=== PATIENT | male | born 1935 | race Caucasian/White ===

== ENCOUNTER 2017-04-18 20:26 | Emergency (ER) | payer OTHER ==
[~2017-04-18 20:26] MED LIST: ALDACTONE25 MG PO; AMITRIPTYLINE H10 MG PO; ASPIRIN325 MG PO; ATORVASTATIN CA40 MG PO; FLONASE AL50 MCG/ACT; LEVOTHYROXINE100 MCG PO; LEVOTHYROXINE75 MCG PO; LISINOPRIL10 MG PO; LOPRESSOR50 MG PO; METFORMIN HCL500 MG PO; METOPROLOL SUCC25 MG PO; MIRTAZAPINE15 MG PO; MS CONTIN15 MG PO; MYLICON EQUIVAL80 MG PO; OMEPRAZOLE20 M1 PO; OXYCODONE HCL5 MG PO; REGLAN10 MG PO; SPIRONOLACTONE25 MG PO; TIZANIDINE HCL2 MG
--- NOTE | 2017-04-18 23:20 | DIAGNOSTIC IMAGING REPORT ---
PROCEDURE: CTA THORAX WITH CONTRAST INDICATION: CHEST PAIN TECHNIQUE: 92 ml of Isovue 370 was injected intravenously and axial images were obtained of the chest with 3D sagittal and coronal MIP reconstructions. COMPARISON: 07/12/2016, 05/26/2015 FINDINGS: Normal opacification of the pulmonary arterial tree without filling defect. The central pulmonary arteries are ectatic. Pulmonary artery outflow tract is 3.7 cm, the left pulmonary artery measures 2.9 cm and the right measures 2.8 cm. Thoracic aorta is normal caliber with mild atherosclerotic calcification. The great vessels demonstrate a normal branching pattern. The heart is diffusely enlarged with moderate coronary and mitral annular calcification. Surgical changes of CABG and median sternotomy are present. No pericardial effusion. No adenopathy or mediastinal masses. The esophagus is normal in caliber with a small hiatal hernia. The thyroid gland is normal. A few patchy nodular densities are present in the posterior and lateral left costophrenic angle, present on prior studies. The airway is patent and branches normally. No pleural effusions or pneumothorax. Osseous structures are intact. The images obtained of the upper abdomen demonstrate cholecystectomy, fatty replacement of the pancreas, right renal cysts. IMPRESSION: 1. No pulmonary embolus. 2. Chronic cardiomegaly post CABG, and pulmonary artery enlargement suggestive of pulmonary hypertension. 3. Clear lungs other than chronic patchy nodules at the left costophrenic angle. 4. Findings called to the emergency room.
--- NOTE | 2017-04-18 23:25 | DIAGNOSTIC IMAGING REPORT ---
PROCEDURE: XR CHEST 1 VIEW INDICATION: SHORTNESS OF BREATH TECHNIQUE: Single view chest. 2044 hours COMPARISON: 11/23/2015 FINDINGS: Mild cardiomegaly with median sternotomy and CABG changes. No central venous congestion. Slight prominence of central pulmonary arteries, stable. Normal aortic contour. Clear lungs. No effusion or pneumothorax. Intact osseous structures. IMPRESSION: 1. Mild cardiomegaly with postoperative changes, stable. 2. Mild pulmonary artery enlargement, stable. 3. No evidence of acute chest trauma.
--- NOTE | 2017-04-19 01:42 | ED CLINICAL REPORT ---
Clinical Report - Physicians/Mid Levels [facility] [address] [place] [address] 04/18/2017 20:28 Patient: MANUELA CORADO Time Seen: 20:32; initial patient contact. Arrived- By ambulance. Historian- patient. HISTORY OF PRESENT ILLNESS Location of injuries- (left lower chest). Chief Complaint: FALL. The injury occurred just prior to arrival. Occurred at home. ( light headed.). Fell. The patient complains of moderate pain. No blow to the head, neck pain, loss of consciousness or seizure. Not dazed. REVIEW OF SYSTEMS No numbness, difficulty breathing, weakness, laceration or fever. All systems otherwise negative, except as recorded above. PAST HISTORY See nurses notes. Tetanus immunization status is up-to-date. Medications: Oxycodone 15 mg PO Q 4-6 hrs PRN pain. Mirtazapine 30 mg PO QHS for sleep and appetite. Metoprolol 50 mg PO BID. Omeprazole 40 mg PO BID. Nortriptyline 10 mg 1-2 capsules PO Q evening. Atorvastatin 40 mg PO QHS. Metformin ER 500 mg PO QD. Allergies: No Known Drug Allergy. ADDITIONAL NOTES The nursing notes have been reviewed. PHYSICAL EXAM Vital Signs: 04/18/2017 20:33 BP: 139/73. HR: 80. RR: 12. O2 saturation: 98%. Temp: 97.6 F. Pain level now: 7/10. Oxygen saturation normal. Appearance: Alert. Oriented X3. No acute distress. Head: Head non-tender. No swelling of head. No Calero's sign or raccoon eyes. (mid-face stable. no crepitus. no deformity. no overlying skin changes). Eyes: Pupils equal, round and reactive to light. Pupillary exam: Right pupil 3mm, round and reactive to light directly and consensually and with accommodation. Left pupil: 3mm, round and reactive to light directly and consensually and with accommodation. EOM intact. ENT: No dental injury. No hemotympanum. Pharynx normal. No malocclusion. Neck: No decreased ROM or muscle spasm in the neck. No pain with movement of head/neck. Painless ROM. Non-tender. No vertebral tenderness. CVS: Heart sounds normal. Pulses normal. Respiratory: Breath sounds normal. Chest nontender. No rales, wheezes, rhonchi or crepitus. Abdomen: No visible injury. Soft and nontender. Bowel sounds normal. No mass. Back: No tenderness. ROM normal. Skin: Skin intact. Skin warm and dry. Normal skin color. Normal skin turgor. Extremities: Normal inspection. Pelvis stable. Extremities atraumatic. No lower extremity edema. Neuro: Maurisio Coma Scale: 15- eyes open spontaneously (4); best verbal response- oriented x 3 (5); best motor response- obeys commands (6). Oriented X 3. No motor deficit. No sensory deficit. LABS, X-RAYS, AND EKG EKG: Atrial flutter (78). RBBB. Normal ST and T waves, QT and QTc. The study has been interpreted contemporaneously. The study has been independently viewed by me. The EKG appears to be a good tracing. Chest X-ray: (PROCEDURE: XR CHEST 1 VIEW INDICATION: SHORTNESS OF BREATH TECHNIQUE: Single view chest. 2044 hours COMPARISON: 11/23/2015 FINDINGS: Mild cardiomegaly with median sternotomy and CABG changes. No central venous congestion. Slight prominence of central pulmonary arteries, stable. Normal aortic contour. Clear lungs. No effusion or pneumothorax. Intact osseous structures. IMPRESSION: 1. Mild cardiomegaly with postoperative changes, stable. 2. Mild pulmonary artery enlargement, stable.). The X-rays were independently viewed by me and interpreted by the radiologist. The X-rays were discussed with the radiologist (via pacs). Chest CT: (PROCEDURE: CTA THORAX WITH CONTRAST INDICATION: CHEST PAIN TECHNIQUE: 92 ml of Isovue 370 was injected intravenously and axial images were obtained of the chest with 3D sagittal and coronal MIP reconstructions. COMPARISON: 07/12/2016, 05/26/2015 FINDINGS: Normal opacification of the pulmonary arterial tree without filling defect. The central pulmonary arteries are ectatic. Pulmonary artery outflow tract is 3.7 cm, the left pulmonary artery measures 2.9 cm and the right measures 2.8 cm. Thoracic aorta is normal caliber with mild atherosclerotic calcification. The great vessels demonstrate a normal branching pattern. The heart is diffusely enlarged with moderate coronary and mitral annular calcification. Surgical changes of CABG and median sternotomy are present. No pericardial effusion. No adenopathy or mediastinal masses. The esophagus is normal in caliber with a small hiatal hernia. The thyroid gland is normal. A few patchy nodular densities are present in the posterior and lateral left costophrenic angle, present on prior studies. The airway is patent and branches normally. No pleural effusions or pneumothorax. Osseous structures are intact. The images obtained of the upper abdomen demonstrate cholecystectomy, fatty replacement of the pancreas, right renal cysts. IMPRESSION: 1. No pulmonary embolus. 2. Chronic cardiomegaly post CABG, and pulmonary artery enlargement suggestive of pulmonary hypertension. 3. Clear lungs other than chronic patchy nodules at the left costophrenic angle.). The study was independently viewed by me and interpreted by the radiologist. The study was discussed with the radiologist (via pacs and phone). Laboratory Tests: UA-Culture if indicated: (CAROLINE: 04/18/2017 21:25) ( [facility] 04[facility]18[facility] 21[facility]43[facility] Final results Test Result Flag Units (Reference) URINE COLOR YELLOW URINE APPEARANCE CLEAR URINE GLUCOSE NEGATIVE (NEGATIVE) URINE BILIRUBIN NEGATIVE (NEGATIVE) URINE KETONE TRACE (NEGATIVE) URINE SPECIFIC GRAVITY 1.020 (1.010-1.030) URINE PH 6.0 (5.0-8.0) URINE PROTEIN NEGATIVE (NEGATIVE) URINE UROBILINOGEN 1.0 EU/dL (0.2-1.0) URINE NITRITE NEGATIVE (NEGATIVE) URINE BLOOD NEGATIVE (NEGATIVE) URINE LEUK ESTERASE NEGATIVE (NEGATIVE) URINE RBC RARE rbc/hpf (0-1) URINE WBC RARE wbc/hpf (0-1) URINE EPITHELIAL CELLS RARE EPI/hpf (0-5) URINE BACTERIA NONE SEEN (NONE SEEN) URINE COMMENT CULT NOT INDICATED 3-5 Hyaline Casts/l.p.f.URINE CULTURES ARE SET-UP BASED ON THE FOLLOWING CRITERIA:POSITIVE NITRITEPOSITIVE LEUKOCYTE ESTERASEGREATER THAN 10 WHITE BLOOD CELLSMODERATE (2+) OR GREATER BACTERIA CBC w Diff: (CAROLINE: 04/18/2017 20:35) ( [facility] 04/18/[facility] 21:00) Final results Test Result Flag Units (Reference) WHITE BLOOD COUNT 10.4 K/uL (4.5-11.5) RED BLOOD COUNT 4.33 L M/uL (4.50-5.90) HEMOGLOBIN 13.9 gm/dL (13.5-17.5) HEMATOCRIT 42.0 % (41.0-53.0) MEAN CELL VOLUME 97 fL (80-100) MEAN CORPUSCULAR HGB 32 pg (26-34) MEAN CORPUSCULAR HGB CONC 33 g/dL (31-37) RED CELL DISTRIBUTION WIDTH 13.6 % (11.6-14.8) PLATELET COUNT 208 K/uL (150-400) NEUTROPHIL % 70.5 % (50-75) LYMPH % 22.2 L % (25-40) MONO % 5.9 % (3-14) EOSINOPHIL % 1.1 % (0-4) BASOPHIL % 0.3 % (0-2) [id number]: (CAROLINE: 04/18/2017 20:35) ( [facility] 04/18/2017 21:12) Final results Test Result Flag Units (Reference) D-DIMER QUANTITATIVE 0.76 H ug/mLFEU (0.27-0.52) The primary value of this quantitative assay relates toits negative predictive value (i.e. exclusion) of pulmonaryembolism/deep vein thrombosis/DIC.Elevated levels of d-dimer may also occur with:, age, cancer, inflammation, liver disease,post-op, infection, hematoma, coronary disease, peripheralarteriopathy, bleeding disorders and thrombolytic treatment.Results should be correlated with other clinical andradiological data.Testing Methodology: Latex Immunoassay [id number]: (CAROLINE: 04/18/2017 23:46) ( [facility] 04/19/2017 00:13) Final results Test Result Flag Units (Reference) POTASSIUM 5.1 # mmol/L (3.5-5.1) Troponin-I: (CAROLINE: 04/18/2017 23:30) ( [facility] 04/18/2017 23:53) Final results Test Result Flag Units (Reference) TROPONIN I <0.05 L ng/mL (0.00-1.5) TROPONIN REFERENCE RANGE:<0.1 NEGATIVE0.1-1.5 INDETERMINANT>1.5 POSITIVE BNP: (CAROLINE: 04/18/2017 20:35) ( [facility] 04/18/2017 21:17) Final results Test Result Flag Units (Reference) B-TYPE NATRIURETIC PEPTIDE 150 H pg/ml (5-100) CHEM 13 PANEL: (CAROLINE: 04/18/2017 20:35) ( [facility] 04/18/2017 21:21) Final results Test Result Flag Units (Reference) GLUCOSE 174 H mg/dL (70-110) BUN 26 H mg/dL (7-18) CREATININE 1.6 H mg/dL (0.6-1.3) Estimated GFR 44.09 mL/min Estimated GFR- 53.44 mL/min Note: Persistent reduction over 3 months in eGFR<60 mL/min/1.73 m2 defines CKD. Patients with eGFR values>=60 mL/min/1.73 m2 may also have CKD if evidence ofpersistent proteinuria. Additional information may be foundat www.kidney.org. SODIUM 136 mmol/L (136-145) POTASSIUM 6.0 H mmol/L (3.5-5.1) CHLORIDE 98 mmol/L (98-107) CARBON DIOXIDE 30 mmol/L (21-32) CALCIUM 9.2 mg/dL (8.5-10.1) TOTAL PROTEIN 8.6 H g/dL (6.4-8.2) ALBUMIN 4.5 g/dL (3.3-5.0) BILIRUBIN, TOTAL 0.6 mg/dL (0.0-1.0) ALKALINE PHOSPHATASE 166 H U/L (46-116) AST (SGOT) 26 U/L (15-37) ALT (SGPT) 32 U/L (12-78) CPK 112 U/L (24-260) MAGNESIUM 1.6 L mg/dL (1.8-2.4) TROPONIN I <0.05 L ng/mL (0.00-1.5) TROPONIN REFERENCE RANGE:<0.1 NEGATIVE0.1-1.5 INDETERMINANT>1.5 POSITIVE . PROGRESS AND PROCEDURES Course of Care: the patient is a pleasant 82-year-old male presenting for evaluation of ground-level fall with reported left lower chest discomfort. Patient had a episode of dizziness prior to the onset of the fall. The concern for cardiac etiology for the patient's fall. Patient be evaluated with the Rosanky syncope rule. Patient is otherwise nontoxic and in no acute distress. Lung sounds are clear bilaterally. No concern for pneumothorax or tension pneumothorax at this time. The patient's workup was unremarkable for the findings above. Troponin is noted to be negative. Patient's d-dimer is elevated however. We'll be evaluating the patient with a CT scan of the patient's chest under the pulmonary embolism protocol. The rest of the patient's workup is noted to be unremarkable. Patient is currently awaiting his second troponin. If the patient's second troponin is noted to be negative, do not feel patient requires further workup here in the emergency department or admission to the hospital. The patient's CT scan of the chest does not show any signs of acute abnormalities. No pulmonary embolism noted. Because of the patient's negative workup here in the emergency department, feel the patient is a stable outpatient candidate. patient also noted with a pacemaker. Because of this, if it is due to a cardiac etiology, the pacemaker should help with the patient's symptoms. Recommended patient follow up with his doctor in regards to the symptoms here today. Return precautions are provided in addition to home care instructions, follow-up, and discussion of his workup here in the emergency department and diagnosis. All questions have been answered. The patient expressed understanding of these instructions and was agreeable to them. Disposition: Discharged. Condition: good. CLINICAL IMPRESSION 04/19/2017 01:21 BP: 110/53. HR: 66. O2 saturation: 98%. 04/19/2017 00:49 BP: 104/48. HR: 68. RR: 17. O2 saturation: 100%. Temp: 98 F. Pain level now: 9/10. Syncope of unknown cause .12 lead EKG performed. Blood pressure normal. Oxygen saturation normal. Atrial flutter with controlled rate. Moderate dehydration Hyperkalemia (acute resolved). Mild hypomagnesemia (acute). Single contusion. (anterior chest). INSTRUCTIONS Warnings: GENERAL WARNINGS: Return or contact your physician immediately if your condition worsens or changes unexpectedly, if not improving as expected, or if other problems arise. SPECIFICALLY, return if you develop weakness, numbness, tingling, pain or incontinence. OTC Medications: Aspirin 325 mg (available over the counter): take 1 orally every 24 hours. Dispense thirty (30). No refills. 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 Reason for referral: recheck today's concerns. Summary of care provided to patient via paper. Follow up with your doctor in three days. Reason for referral: recheck today's concerns. Summary of care provided to patient via paper. Screening today revealed the patient's blood pressure to be in the normal range. The patient should follow up with a primary care provider for blood pressure management. (Electronically signed by Rubens Rios Dr. 04/21/2017 8:05)
--- NOTE | 2017-04-19 01:42 | ED ORDER SUMMARY ---
..... Patient: MANUELA CORADO OrderSheet [facility] VisitID: [id number] [place] [address] 82y, M Registration Date/Time: 04/18/2017 ORDER SHEET Weight: 79.3 kg (stated) Allergies: No Known Drug Allergy GENERAL ORDERS: Chest 1V Urgent (20:33 04/18/2017 Bill Fierro) (Ack 20:38 CHagerty ER Pump Stitcher) (21:00 Elena) UA-Culture if indicated Urgent (20:34 04/18/2017 Bill Fierro) (Ack 20:38 CHagerty ER Pump Stitcher) (21:26 ANGELICAanderjovita R.N.) Cardiac Panel Stat (20:34 04/18/2017 Bill Fierro) (Ack 20:38 CHagerty ER Pump Stitcher) (21:20 ANGELICAanders R.N.) BNP Urgent (20:34 04/18/2017 Bill Fierro) (Ack 20:38 CHagerty ER Pump Stitcher) (21:20 ANGELICAanders R.N.) D-Dimer Urgent (20:34 04/18/2017 Bill Fierro) (Ack 20:38 CHagerty ER Pump Stitcher) (21:20 ANGELICAanders R.N.) EKG - ER Stat (20:34 04/18/2017 Bill Fierro) (Ack 20:38 CHagerty ER Pump Stitcher) (20:45 JQuivey R.N.) CTA Thorax w Cont (No) (gfr 45) Urgent (21:45 04/18/2017 Amy Fierro) (Ack 21:52 CHagerty ER Pump Stitcher) (22:20 CHagerty ER Pump Stitcher) Troponin-I (redraw now) Urgent (23:19 04/18/2017 Amy Fierro) (Ack 23:24 CHagerty ER Pump Stitcher) (23:32 MCook R.N.) Potassium (repeat) Urgent (23:43 04/18/2017 Amy Fierro) (23:45 CHagerty ER Pump Stitcher) MEDICATION ORDERS: IV FLUIDS: IV NS : initial bolus none -, then 1000 mL/hr for X1 (NOW) (Runn 500 mL in initially plz) (20:33 04/18/2017 Bill Fierro) (20:45 Augie R.NBrigid) Morphine IV 2 mg (may repeat in 15 minutes for pain > 5/10 in severity) (21:56 04/18/2017 Amy Fierro) (22:02 Leon Chino.NBrigid) Magnesium Sulfate IV 2 gm/50mL (HIGH ALERT MEDICATION, NOW, over 1 hour) (23:44 04/18/2017 Amy Fierro) (Ack 23:55 Kaye R.N.) (0:09 Kaye R.N.) Morphine IV 2 mg (HIGH ALERT MEDICATION, NOW) (00:58 04/19/2017 Kaye R.N. verbal order read back to Amy Fierro) (Ack 1:00 Shiranandez R.N.) (1:06 CHernandez R.N.) ORDER SHEET NOTES: Reason for Study: Pain [Electronically signed by Stiven Carter R.N. (02:04/19/2017)] [Electronically signed by Rubens Rios Dr. (08:05 04/21/2017)] [Electronically locked/signed by Stiven Carter R.N. (02:04/19/2017)]
--- NOTE | 2017-04-19 01:42 | ED NURSING NOTES ---
Clinical Report - Nurses [facility] [address] [place] [address] 04/18/2017 20:28 Patient: MANUELA CORADO TRIAGE Triage time 20:33 Apr 18 2017. Acuity: LEVEL 3. Chief Complaint: DIZZINESS and NEAR-SYNCOPE and (Pt feel while working outside, reported feeling dizzy. On impact, he hit a piece fo wood on his L upper abdomen, he also hit his face.). Alert. No acute distress. --20:38 Rusty Underwood R.N. 20:33 04/18/17. BP: 139/73. HR: 80. RR: 12. O2 saturation: 98% on room air. Temp: 97.6 F. Pain level now: 06/02. --20:38 Rusty Underwood R.N. Weight: 79.3 kg stated. Height/Length: 71 inches Per Patient. BMI: 24.4. --20:32 Rusty Underwood R.N. Medications Metformin ER 500 mg PO QD. --23:22 Rusty Underwood R.N. Atorvastatin 40 mg PO QHS. --23:22 Rusty Underwood R.N. Nortriptyline 10 mg 1-2 capsules PO Q evening. --23:23 Rusty Underwood R.N. Omeprazole 40 mg PO BID. --23:23 Rusty Underwood R.N. Metoprolol 50 mg PO BID. --23:23 Rusty Underwood R.N. Mirtazapine 30 mg PO QHS for sleep and appetite. --23:24 Rusty Underwood R.N. Oxycodone 15 mg PO Q 4-6 hrs PRN pain. --23:25 Rusty Underwood R.N. Allergies No Known Drug Allergy. --20:34 Rusty Underwood R.N. History Arrived by EMS. Historian: patient. This started today. 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 PAST MEDICAL HX: Immunizations: up-to-date. SOCIAL HX: Light tobacco smoker- less than 1/2 a pack per day. No alcohol use or drug use. No infectious disease exposure. ABUSE ASSESSMENT: No report of abuse. NUTRITIONAL RISK ASSESSMENT: The nutritional risk assessment revealed no deficiencies. FUNCTIONAL ASSESSMENT: Functional assessment: no impairments noted. LEARNING NEEDS ASSESSMENT: The learning needs assessment revealed no barriers. FALL RISK ASSESSMENT: Fall risk assessment completed. Risk factors identified include dizziness and patient age greater than 65 years, history of fall and impairment of mobility; Pt uses a walker and a cane at home PRN. SKIN INTEGRITY ASSESSMENT: Skin integrity risk assessment completed. No skin integrity risk identified. --20:38 Rusty Underwood R.N. PROBLEMS: Gastroesophageal Reflux. Chest Pain. Vomiting. Fall. Contusion. Tetanus Status. Choking Episode. Coronary Artery Disease. Insomnia. Dyspnea. Dehydration. Abdominal Pain. GI Bleeding. Immunizations. Weakness. Cardiomyopathy. Diabetes Mellitus. Heart Disease. Hypertension. --20:35 Rusty Underwood R.N. ADDITIONAL SURGERIES: Appendectomy. Back Surgery. Cholecystectomy. Coronary Artery Bypass Graft. --20:35 uRsty Underwood R.N. Assessment The patient states feels better. --20:38 Rusty Underwood R.N. Interventions ID band on patient. To treatment room. --20:38 Rusty Underwood R.N. PHYSICAL ASSESSMENT To room via stretcher. GENERAL / NEURO / PSYCH: Oriented X 4. Appears in pain. Alert. Speech within normal limits. HEENT: Pupils equal, round and reactive to light. RESPIRATORY: Respirations not labored. CVS: Cardiac rhythm: normal sinus rhythm; multifocal PVCs. GI / : Abdomen soft. Abdominal tenderness in the left upper quadrant. SKIN: Skin is warm and dry. --20:39 Rusty Underwood R.N. CVS: Cardiac rhythm: atrial flutter. --22:34 Rusty Underwodo R.N. GENERAL / NEURO / PSYCH: Oriented X 4. Appears in no acute distress. Alert. Speech within normal limits. Does not appear in pain or distress or anxious. RESPIRATORY: Decreased breath sounds (due to side pain in deep inspiration--breath/lung sounds clear, however). Respirations not labored. CVS: Cardiac rhythm: atrial flutter. Capillary refill less than 2 seconds. GI / : Abdomen soft. Normal bowel sounds. SKIN: Skin is warm and dry. --01:34 Stiven Carter R.N. NURSING PROGRESS NOTES The plan of care for this patient has been created. Monitoring of patient in place. Patient gowned. Head of bed elevated. Reassurance given. Two patient identifiers checked. Call light placed in reach. Side rails up x 2. Bed placed in lowest position. Patient ready for evaluation- ED physician notified. ( MD in to assess Pt briefly, IVIP, monitoring in place.). --20:39 Rusty Underwood R.N. <<STRICKEN ENTRY-- 20:44 04/18/17. BP: 119/78. HR: 101. RR: 22. O2 saturation: 99% on Venti mask. Temp: 98.2 F. FLACC pain scale: 4/10. --20:44 Rusty Underwood R.N. --END STRIKE>> Charted on wrong patient. --20:45 Rusty Underwood R.N. 20:35 04/18/2017 Site #1 started via IV in the right antecubital space with an 20g angiocath, with aseptic technique and good blood return; one attempt. Blood drawn: rainbow set. Labeled in the presence of the patient and sent to the lab. Saline lock flushed with 10 mL saline (By Randall PURI). --20:45 Sriram Zarate R.N. 20:45 04/18/2017 Started bag #1 1000 mL IV Fluids IV NS (Saline); at 1000 mL/hr over 30 minute(s) via site #1 --20:45 Sriram Zarate R.N. 20:46. Portable chest x-ray performed. --20:46 Sriram Zarate R.N. 20:46. EKG time: (2047). EKG was performed by a tech and shown to the ED physician. --20:46 Sriram Zarate R.N. 21:26 04/18/2017 IV Fluids IV NS Discontinued: bag #1 discontinued. Total amount infused: 500 mL. IV patency established. IV site checked: no pain, redness, or swelling. IV flushed thoroughly. --21:26 Alma Lemus R.N. 21:26 04/18/17. BP: 140/66 (regular adult cuff) taken on the left arm. HR: 76. RR: 18. O2 saturation: 96% on room air. Pain level now: 08/03. Additional comments: left chest. --21:27 Alma Lemus R.N. 21:27 04/18/17. ( Patient says his chest is hurting left side bottom of rib, patient given blanket for comfort measures, patients daughter stepped out of the room for a short time.). --21:27 Alma Lemus R.N. 22:02 04/18/2017 Morphine IVP 2 mg given over 2 minute(s) via site #1. Allergies verified, confirmed 5 rights and sedative warning given to the patient. IV patency established. IV site checked: no pain, redness, or swelling. IV flushed thoroughly pre- and post-medication administration. IVP given by RN. --22:02 Rusty Underwood R.N. 21:59 04/18/17. BP: 102/54. HR: 72. RR: 13. O2 saturation: 100% on room air. Pain level now: 08/03. --22:02 Rusty Underwood R.N. ( Pt still c/o pain, administered scheduled analgesic as ordered, radiology at bedside preparing to take Pt to CT.). --22:03 Rusty Underwood R.N. Patient transported to CT by stretcher with tech. (22:Apr 18 2017). --22:09 Rusty Underwood R.N. 22:28 04/18/2017 Morphine IVP 2 mg given over 2 minute(s) via site #1. Allergies verified, confirmed 5 rights and sedative warning given to the patient. IV patency established. IV site checked: no pain, redness, or swelling. IV flushed thoroughly pre- and post-medication administration. IVP given by RN. --22:28 Rusty Underwood R.N. 22:28 04/18/17. BP: 149/66. HR: 70. RR: 20. O2 saturation: 100% on room air. --22:29 Rusty Underwood R.N. ( Pt returned from CT a few moments ago. Still reporting pain. Repeat dose of morphine given as ordered, VSS, Pt denies needs.). --22:29 Rusty Underwood R.N. Patient ID band checked for patient name and birthdate: patient confirmed. Blood samples drawn from the right antecubital space peripheral IV site by nurse per protocol ; labeled in presence of the patient and sent to lab: green top. Initial blood discarded. Line flushed with 10 mL normal saline post blood draw. Care transferred and report given (to JOHN Sandoval at end of shift.). --23:32 Rusty Underwood R.N. 23:32 04/18/2017 Morphine IVP Response: no adverse reaction pain is improving. --23:32 Rusty Underwood R.N. 00:09 04/19/2017 Magnesium Sulfate (Magnesium Sulfate in D5W) IVP 2 gm given over 2 hour(s) via site #1. Allergies verified and confirmed 5 rights. IV patency established. IV site checked: no pain, redness, or swelling. IV flushed thoroughly pre- and post-medication administration. IVP given by RN. --00:09 Gerhard Santa R.N. 00:49 04/19/17. BP: 104/48. HR: 68. RR: 17. O2 saturation: 100%. Temp: 98 F. Pain level now: 08/03. --00:50 Gerhard Santa R.N. ( Complaining of pain on his left side to the back). GENERAL / NEURO / PSYCH: Patient is calm and cooperative. Alert. Oriented X 4. RESPIRATORY: No respiratory distress. SKIN: Skin is warm and dry. --00:50 Gerhard Santa R.N. 01:05 04/19/2017 Morphine IVP 2 mg given over 3 minute(s) via site #1. Allergies verified, confirmed 5 rights and sedative warning given to the patient and patient's family. IV patency established. IV site checked: no pain, redness, or swelling. IV flushed thoroughly pre- and post-medication administration. IVP given by RN. --01:06 Gerhard Santa R.N. ( Report received from Gerhard Galindo RN). --01:17 Stiven Carter R.N. ( Patient resting in bed and sleeping on arrival to room, awoke to verbal greeting). --01:34 Stiven Carter R.N. 02:04 04/19/2017 Site #1 removed upon discharge. Manual pressure and bandage applied. --02:04 Stiven Carter R.N. DISPOSITION / DISCHARGE 01:58 04/19/17. Condition at departure: improved. No learning barriers present. Discharge instructions provided and reviewed with the patient. Reviewed medication(s) side effects, precautions and dosing information (ASA). Patient verbalized understanding. Written instructions provided in Latvian. The patient was discharged by the physician. He was discharged home and accompanied by family. He left the Emergency Department ambulatory and via private vehicle. Family member driving. --01:58 Alma Lemus R.N. 01:54 04/19/17. BP: 110/53 (regular adult cuff) taken on the left arm. HR: 78. RR: 18. O2 saturation: 97% on room air. Temp: 97.8 F (oral). Pain level now: 08/03. --01:58 Alma Lemus R.N. 01:58 04/19/17. ( Patient will get the rest of his Mag Sulf and then be released). --01:58 Alma Lemus R.N. ( Patient a-flutter on surveillance monitor at time of discharge). --02:01 Stiven Carter R.N. Departure time: 02:15. --02:18 Stiven Carter R.N. <<STRICKEN ENTRY-- 02:18 04/19/17. HR: 85. RR: 15. --02:18 Stiven Carter R.N. --END STRIKE>> Change to Details. --02:19 Stiven Carter R.N. 02:15 04/19/17. HR: 85. RR: 15. --02:20 Stiven Carter R.N. The patient was discharged home and accompanied by family. He left the Emergency Department in a wheelchair and via private vehicle. Family member driving. --02:21 Stiven Carter R.N. Locked/Released at 04/19/2017 2:21 by Stiven Carter R.N.
--- NOTE | 2017-04-19 01:42 | ED ORDER SUMMARY ---
..... Patient: MANUELA CORADO OrderSheet [facility] VisitID: [id number] [place] [address] 82y, M Registration Date/Time: 04/18/2017 ORDER SHEET Weight: 79.3 kg (stated) Allergies: No Known Drug Allergy GENERAL ORDERS: Chest 1V Urgent (20:33 04/18/2017 Bill Fierro) (Ack 20:38 CHagerty ER Moisture Conditioner Operator) (21:00 Elena) UA-Culture if indicated Urgent (20:34 04/18/2017 Bill Fierro) (Ack 20:38 CHagerty ER Moisture Conditioner Operator) (21:26 ANGELICAanderjovita R.N.) Cardiac Panel Stat (20:34 04/18/2017 Bill Fierro) (Ack 20:38 CHagerty ER Moisture Conditioner Operator) (21:20 ANGELICAanders R.N.) BNP Urgent (20:34 04/18/2017 Bill Fierro) (Ack 20:38 CHagerty ER Moisture Conditioner Operator) (21:20 ANGELICAanders R.N.) D-Dimer Urgent (20:34 04/18/2017 Bill Fierro) (Ack 20:38 CHagerty ER Moisture Conditioner Operator) (21:20 ANGELICAanders R.N.) EKG - ER Stat (20:34 04/18/2017 Bill Fierro) (Ack 20:38 CHagerty ER Moisture Conditioner Operator) (20:45 JQuivey R.N.) CTA Thorax w Cont (No) (gfr 45) Urgent (21:45 04/18/2017 Amy Fierro) (Ack 21:52 CHagerty ER Moisture Conditioner Operator) (22:20 CHagerty ER Moisture Conditioner Operator) Troponin-I (redraw now) Urgent (23:19 04/18/2017 Amy Fierro) (Ack 23:24 CHagerty ER Moisture Conditioner Operator) (23:32 MCook R.N.) Potassium (repeat) Urgent (23:43 04/18/2017 Amy Fierro) (23:45 CHagerty ER Moisture Conditioner Operator) MEDICATION ORDERS: IV FLUIDS: IV NS : initial bolus none -, then 1000 mL/hr for X1 (NOW) (Runn 500 mL in initially plz) (20:33 04/18/2017 Bill Fierro) (20:45 Augie R.NBrigid) Morphine IV 2 mg (may repeat in 15 minutes for pain > 5/10 in severity) (21:56 04/18/2017 Amy Fierro) (22:02 Leon Chnio.NBrigid) Magnesium Sulfate IV 2 gm/50mL (HIGH ALERT MEDICATION, NOW, over 1 hour) (23:44 04/18/2017 Amy Fierro) (Ack 23:55 Kaye R.N.) (0:09 Kaye R.N.) Morphine IV 2 mg (HIGH ALERT MEDICATION, NOW) (00:58 04/19/2017 Kaye R.N. verbal order read back to Amy Fierro) (Ack 1:00 Shiranandez R.N.) (1:06 CHernandez R.N.) ORDER SHEET NOTES: Reason for Study: Pain [Electronically signed by Stiven Carter R.N. (02:04/19/2017)] [Electronically signed by Rubens Rios Dr. (08:05 04/21/2017)] [Electronically locked/signed by Stiven Carter R.N. (02:04/19/2017)]
--- NOTE | 2017-04-19 01:42 | ED CLINICAL REPORT ---
Clinical Report - Physicians/Mid Levels [facility] [address] [place] [address] 04/18/2017 20:28 Patient: MANUELA CORADO Time Seen: 20:32; initial patient contact. Arrived- By ambulance. Historian- patient. HISTORY OF PRESENT ILLNESS Location of injuries- (left lower chest). Chief Complaint: FALL. The injury occurred just prior to arrival. Occurred at home. ( light headed.). Fell. The patient complains of moderate pain. No blow to the head, neck pain, loss of consciousness or seizure. Not dazed. REVIEW OF SYSTEMS No numbness, difficulty breathing, weakness, laceration or fever. All systems otherwise negative, except as recorded above. PAST HISTORY See nurses notes. Tetanus immunization status is up-to-date. Medications: Oxycodone 15 mg PO Q 4-6 hrs PRN pain. Mirtazapine 30 mg PO QHS for sleep and appetite. Metoprolol 50 mg PO BID. Omeprazole 40 mg PO BID. Nortriptyline 10 mg 1-2 capsules PO Q evening. Atorvastatin 40 mg PO QHS. Metformin ER 500 mg PO QD. Allergies: No Known Drug Allergy. ADDITIONAL NOTES The nursing notes have been reviewed. PHYSICAL EXAM Vital Signs: 04/18/2017 20:33 BP: 139/73. HR: 80. RR: 12. O2 saturation: 98%. Temp: 97.6 F. Pain level now: 7/10. Oxygen saturation normal. Appearance: Alert. Oriented X3. No acute distress. Head: Head non-tender. No swelling of head. No Calero's sign or raccoon eyes. (mid-face stable. no crepitus. no deformity. no overlying skin changes). Eyes: Pupils equal, round and reactive to light. Pupillary exam: Right pupil 3mm, round and reactive to light directly and consensually and with accommodation. Left pupil: 3mm, round and reactive to light directly and consensually and with accommodation. EOM intact. ENT: No dental injury. No hemotympanum. Pharynx normal. No malocclusion. Neck: No decreased ROM or muscle spasm in the neck. No pain with movement of head/neck. Painless ROM. Non-tender. No vertebral tenderness. CVS: Heart sounds normal. Pulses normal. Respiratory: Breath sounds normal. Chest nontender. No rales, wheezes, rhonchi or crepitus. Abdomen: No visible injury. Soft and nontender. Bowel sounds normal. No mass. Back: No tenderness. ROM normal. Skin: Skin intact. Skin warm and dry. Normal skin color. Normal skin turgor. Extremities: Normal inspection. Pelvis stable. Extremities atraumatic. No lower extremity edema. Neuro: Maurisio Coma Scale: 15- eyes open spontaneously (4); best verbal response- oriented x 3 (5); best motor response- obeys commands (6). Oriented X 3. No motor deficit. No sensory deficit. LABS, X-RAYS, AND EKG EKG: Atrial flutter (78). RBBB. Normal ST and T waves, QT and QTc. The study has been interpreted contemporaneously. The study has been independently viewed by me. The EKG appears to be a good tracing. Chest X-ray: (PROCEDURE: XR CHEST 1 VIEW INDICATION: SHORTNESS OF BREATH TECHNIQUE: Single view chest. 2044 hours COMPARISON: 11/23/2015 FINDINGS: Mild cardiomegaly with median sternotomy and CABG changes. No central venous congestion. Slight prominence of central pulmonary arteries, stable. Normal aortic contour. Clear lungs. No effusion or pneumothorax. Intact osseous structures. IMPRESSION: 1. Mild cardiomegaly with postoperative changes, stable. 2. Mild pulmonary artery enlargement, stable.). The X-rays were independently viewed by me and interpreted by the radiologist. The X-rays were discussed with the radiologist (via pacs). Chest CT: (PROCEDURE: CTA THORAX WITH CONTRAST INDICATION: CHEST PAIN TECHNIQUE: 92 ml of Isovue 370 was injected intravenously and axial images were obtained of the chest with 3D sagittal and coronal MIP reconstructions. COMPARISON: 07/12/2016, 05/26/2015 FINDINGS: Normal opacification of the pulmonary arterial tree without filling defect. The central pulmonary arteries are ectatic. Pulmonary artery outflow tract is 3.7 cm, the left pulmonary artery measures 2.9 cm and the right measures 2.8 cm. Thoracic aorta is normal caliber with mild atherosclerotic calcification. The great vessels demonstrate a normal branching pattern. The heart is diffusely enlarged with moderate coronary and mitral annular calcification. Surgical changes of CABG and median sternotomy are present. No pericardial effusion. No adenopathy or mediastinal masses. The esophagus is normal in caliber with a small hiatal hernia. The thyroid gland is normal. A few patchy nodular densities are present in the posterior and lateral left costophrenic angle, present on prior studies. The airway is patent and branches normally. No pleural effusions or pneumothorax. Osseous structures are intact. The images obtained of the upper abdomen demonstrate cholecystectomy, fatty replacement of the pancreas, right renal cysts. IMPRESSION: 1. No pulmonary embolus. 2. Chronic cardiomegaly post CABG, and pulmonary artery enlargement suggestive of pulmonary hypertension. 3. Clear lungs other than chronic patchy nodules at the left costophrenic angle.). The study was independently viewed by me and interpreted by the radiologist. The study was discussed with the radiologist (via pacs and phone). Laboratory Tests: UA-Culture if indicated: (CAROLINE: 04/18/2017 21:25) ( [facility] [place] 04/18/[place] 21:43) Final results Test Result Flag Units (Reference) URINE COLOR YELLOW URINE APPEARANCE CLEAR URINE GLUCOSE NEGATIVE (NEGATIVE) URINE BILIRUBIN NEGATIVE (NEGATIVE) URINE KETONE TRACE (NEGATIVE) URINE SPECIFIC GRAVITY 1.020 (1.010-1.030) URINE PH 6.0 (5.0-8.0) URINE PROTEIN NEGATIVE (NEGATIVE) URINE UROBILINOGEN 1.0 EU/dL (0.2-1.0) URINE NITRITE NEGATIVE (NEGATIVE) URINE BLOOD NEGATIVE (NEGATIVE) URINE LEUK ESTERASE NEGATIVE (NEGATIVE) URINE RBC RARE rbc/hpf (0-1) URINE WBC RARE wbc/hpf (0-1) URINE EPITHELIAL CELLS RARE EPI/hpf (0-5) URINE BACTERIA NONE SEEN (NONE SEEN) URINE COMMENT CULT NOT INDICATED 3-5 Hyaline Casts/l.p.f.URINE CULTURES ARE SET-UP BASED ON THE FOLLOWING CRITERIA:POSITIVE NITRITEPOSITIVE LEUKOCYTE ESTERASEGREATER THAN 10 WHITE BLOOD CELLSMODERATE (2+) OR GREATER BACTERIA CBC w Diff: (CAROLINE: 04/18/2017 20:35) ( [facility] 04/18/2017 21:00) Final results Test Result Flag Units (Reference) WHITE BLOOD COUNT 10.4 K/uL (4.5-11.5) RED BLOOD COUNT 4.33 L M/uL (4.50-5.90) HEMOGLOBIN 13.9 gm/dL (13.5-17.5) HEMATOCRIT 42.0 % (41.0-53.0) MEAN CELL VOLUME 97 fL (80-100) MEAN CORPUSCULAR HGB 32 pg (26-34) MEAN CORPUSCULAR HGB CONC 33 g/dL (31-37) RED CELL DISTRIBUTION WIDTH 13.6 % (11.6-14.8) PLATELET COUNT 208 K/uL (150-400) NEUTROPHIL % 70.5 % (50-75) LYMPH % 22.2 L % (25-40) MONO % 5.9 % (3-14) EOSINOPHIL % 1.1 % (0-4) BASOPHIL % 0.3 % (0-2) [id number]: (CAROLINE: 04/18/2017 20:35) ( [facility] [place] 04/18/2017 21:12) Final results Test Result Flag Units (Reference) D-DIMER QUANTITATIVE 0.76 H ug/mLFEU (0.27-0.52) The primary value of this quantitative assay relates toits negative predictive value (i.e. exclusion) of pulmonaryembolism/deep vein thrombosis/DIC.Elevated levels of d-dimer may also occur with:, age, cancer, inflammation, liver disease,post-op, infection, hematoma, coronary disease, peripheralarteriopathy, bleeding disorders and thrombolytic treatment.Results should be correlated with other clinical andradiological data.Testing Methodology: Latex Immunoassay [id number]: (CAROLINE: 04/18/2017 23:46) ( [facility] [place] 04/19/2017 00:13) Final results Test Result Flag Units (Reference) POTASSIUM 5.1 # mmol/L (3.5-5.1) Troponin-I: (CAROLINE: 04/18/2017 23:30) ( [facility] 04/18/2017 23:53) Final results Test Result Flag Units (Reference) TROPONIN I <0.05 L ng/mL (0.00-1.5) TROPONIN REFERENCE RANGE:<0.1 NEGATIVE0.1-1.5 INDETERMINANT>1.5 POSITIVE BNP: (CAROLINE: 04/18/2017 20:35) ( [facility] 04/18/2017 21:17) Final results Test Result Flag Units (Reference) B-TYPE NATRIURETIC PEPTIDE 150 H pg/ml (5-100) CHEM 13 PANEL: (CAROLINE: 04/18/2017 20:35) ( [facility] 04/18/2017 21:21) Final results Test Result Flag Units (Reference) GLUCOSE 174 H mg/dL (70-110) BUN 26 H mg/dL (7-18) CREATININE 1.6 H mg/dL (0.6-1.3) Estimated GFR 44.09 mL/min Estimated GFR- 53.44 mL/min Note: Persistent reduction over 3 months in eGFR<60 mL/min/1.73 m2 defines CKD. Patients with eGFR values>=60 mL/min/1.73 m2 may also have CKD if evidence ofpersistent proteinuria. Additional information may be foundat www.[email or web address].org. SODIUM 136 mmol/L (136-145) POTASSIUM 6.0 H mmol/L (3.5-5.1) CHLORIDE 98 mmol/L (98-107) CARBON DIOXIDE 30 mmol/L (21-32) CALCIUM 9.2 mg/dL (8.5-10.1) TOTAL PROTEIN 8.6 H g/dL (6.4-8.2) ALBUMIN 4.5 g/dL (3.3-5.0) BILIRUBIN, TOTAL 0.6 mg/dL (0.0-1.0) ALKALINE PHOSPHATASE 166 H U/L (46-116) AST (SGOT) 26 U/L (15-37) ALT (SGPT) 32 U/L (12-78) CPK 112 U/L (24-260) MAGNESIUM 1.6 L mg/dL (1.8-2.4) TROPONIN I <0.05 L ng/mL (0.00-1.5) TROPONIN REFERENCE RANGE:<0.1 NEGATIVE0.1-1.5 INDETERMINANT>1.5 POSITIVE . PROGRESS AND PROCEDURES Course of Care: the patient is a pleasant 82-year-old male presenting for evaluation of ground-level fall with reported left lower chest discomfort. Patient had a episode of dizziness prior to the onset of the fall. The concern for cardiac etiology for the patient's fall. Patient be evaluated with the [place] syncope rule. Patient is otherwise nontoxic and in no acute distress. Lung sounds are clear bilaterally. No concern for pneumothorax or tension pneumothorax at this time. The patient's workup was unremarkable for the findings above. Troponin is noted to be negative. Patient's d-dimer is elevated however. We'll be evaluating the patient with a CT scan of the patient's chest under the pulmonary embolism protocol. The rest of the patient's workup is noted to be unremarkable. Patient is currently awaiting his second troponin. If the patient's second troponin is noted to be negative, do not feel patient requires further workup here in the emergency department or admission to the hospital. The patient's CT scan of the chest does not show any signs of acute abnormalities. No pulmonary embolism noted. Because of the patient's negative workup here in the emergency department, feel the patient is a stable outpatient candidate. patient also noted with a pacemaker. Because of this, if it is due to a cardiac etiology, the pacemaker should help with the patient's symptoms. Recommended patient follow up with his doctor in regards to the symptoms here today. Return precautions are provided in addition to home care instructions, follow-up, and discussion of his workup here in the emergency department and diagnosis. All questions have been answered. The patient expressed understanding of these instructions and was agreeable to them. Disposition: Discharged. Condition: good. CLINICAL IMPRESSION 04/19/2017 01:21 BP: 110/53. HR: 66. O2 saturation: 98%. 04/19/2017 00:49 BP: 104/48. HR: 68. RR: 17. O2 saturation: 100%. Temp: 98 F. Pain level now: 9/10. Syncope of unknown cause .12 lead EKG performed. Blood pressure normal. Oxygen saturation normal. Atrial flutter with controlled rate. Moderate dehydration Hyperkalemia (acute resolved). Mild hypomagnesemia (acute). Single contusion. (anterior chest). INSTRUCTIONS Warnings: GENERAL WARNINGS: Return or contact your physician immediately if your condition worsens or changes unexpectedly, if not improving as expected, or if other problems arise. SPECIFICALLY, return if you develop weakness, numbness, tingling, pain or incontinence. OTC Medications: Aspirin 325 mg (available over the counter): take 1 orally every 24 hours. Dispense thirty (30). No refills. Follow-up: Follow up with a specialist your spanish interpreter in three days. Reason for referral: recheck today's concerns. Summary of care provided to patient via paper. Follow up with your doctor in three days. Reason for referral: recheck today's concerns. Summary of care provided to patient via paper. Screening today revealed the patient's blood pressure to be in the normal range. The patient should follow up with a primary care provider for blood pressure management. (Electronically signed by Rubens Rios Dr. 04/21/2017 8:05)
--- NOTE | 2017-04-21 08:05 | ED MED RECONCILIATION SUMMARY ---
Patient: MANUELA CORADO Medication Reconciliation Report [facility] VisitID: [id number] [address] [place] [address] 82y, M Registration Date/Time: 04/18/2017 Weight: 79.3 kg Height/Length: 71 in. BMI: 24.4 ALLERGIES: No Known Drug Allergy The patient's Home Medications are listed below: THE FOLLOWING MEDICATIONS NEED TO BE RECONCILED: Atorvastatin 40 mg PO QHS Metformin ER 500 mg PO QD Metoprolol 50 mg PO BID Mirtazapine 30 mg PO QHS for sleep and appetite Nortriptyline 10 mg 1-2 capsules PO Q evening Omeprazole 40 mg PO BID Oxycodone 15 mg PO Q 4-6 hrs PRN pain The source(s) of the original Home Medication information: Not obtained. The following Medications were given to the patient in the Emergency Department: IV NS IV Fluids bolus 0, then 1000 mL/hr, administered: 04/18/2017 8:45:00 PM Morphine [IVP] IVP 2 mg, administered: 04/18/2017 10:02:00 PM Morphine [IVP] IVP 2 mg, administered: 04/18/2017 10:28:00 PM Magnesium Sulfate [IVP] IVP 2 gm, administered: 04/19/2017 12:09:00 AM Morphine [IVP] IVP 2 mg, administered: 04/19/2017 1:05:00 AM The following Medications were prescribed to the patient: Aspirin 325 mg (available over the counter): take 1 orally every 24 hours. Dispense thirty (30). No refills. -- Rubens Rios Dr.
--- NOTE | 2017-04-21 08:05 | ED MED RECONCILIATION SUMMARY ---
Patient: MANUELA CORADO Medication Reconciliation Report [facility] VisitID: [id number] [address] [place] [address] 82y, M Registration Date/Time: 04/18/2017 Weight: 79.3 kg Height/Length: 71 in. BMI: 24.4 ALLERGIES: No Known Drug Allergy The patient's Home Medications are listed below: THE FOLLOWING MEDICATIONS NEED TO BE RECONCILED: Atorvastatin 40 mg PO QHS Metformin ER 500 mg PO QD Metoprolol 50 mg PO BID Mirtazapine 30 mg PO QHS for sleep and appetite Nortriptyline 10 mg 1-2 capsules PO Q evening Omeprazole 40 mg PO BID Oxycodone 15 mg PO Q 4-6 hrs PRN pain The source(s) of the original Home Medication information: Not obtained. The following Medications were given to the patient in the Emergency Department: IV NS IV Fluids bolus 0, then 1000 mL/hr, administered: 04/18/2017 8:45:00 PM Morphine [IVP] IVP 2 mg, administered: 04/18/2017 10:02:00 PM Morphine [IVP] IVP 2 mg, administered: 04/18/2017 10:28:00 PM Magnesium Sulfate [IVP] IVP 2 gm, administered: 04/19/2017 12:09:00 AM Morphine [IVP] IVP 2 mg, administered: 04/19/2017 1:05:00 AM The following Medications were prescribed to the patient: Aspirin 325 mg (available over the counter): take 1 orally every 24 hours. Dispense thirty (30). No refills. -- Rubens Rios Dr.
--- NOTE | 2017-04-21 08:05 | ED MAR SUMMARY ---
..... Medication Administration Record [facility] [address] [place] [address] Patient: MANUELA CORADO Visit ID: [id number] 82y, M Weight: 79.3 kg Height/Length: 71 in BMI: 24.4 ALLERGIES: No Known Drug Allergy Start 20:45 04/18/2017 Sriram Zarate RFina, Stop 21:26 04/18/2017 Alma Lemus R.N. Medication Administered: IV NS (SALINE), Dose: IV Fluids over 30 minute(s), Rate: 1000 mL/hr, Dispensed: 1000 mL bag, Site: #1 right AC. Medication Ordered: IV NS : initial bolus none -, then 1000 mL/hr for X1 (NOW) (Runn 500 mL in initially plz). Given 22:02 04/18/2017 Rusty Underwood R.N. Medication Administered: MORPHINE [IVP], Dose: 2 mg IVP over 2 minute(s), Site: #1 right AC. Medication Ordered: Morphine IV 2 mg (may repeat in 15 minutes for pain > 5/10 in severity). Given 22:28 04/18/2017 Rusty Underwood R.N. Medication Administered: MORPHINE [IVP], Dose: 2 mg IVP over 2 minute(s), Site: #1 right AC. Medication Ordered: Morphine IV 2 mg (may repeat in 15 minutes for pain > 5/10 in severity). Given 00:09 04/19/2017 Gerhard Santa R.N. Medication Administered: MAGNESIUM SULFATE [IVP] (MAGNESIUM SULFATE IN D5W), Dose: 2 gm IVP over 2 hour(s), Site: #1 right AC. Medication Ordered: Magnesium Sulfate IV 2 gm/50mL (HIGH ALERT MEDICATION, NOW, over 1 hour). Given 01:05 04/19/2017 Gerhard Santa R.N. Medication Administered: MORPHINE [IVP], Dose: 2 mg IVP over 3 minute(s), Site: #1 right AC. Medication Ordered: Morphine IV 2 mg (HIGH ALERT MEDICATION, NOW).
--- NOTE | 2017-04-21 08:05 | ED DISCHARGE INSTRUCTIONS ---
Patient: MANUELA CORADO General Instructions [facility] VisitID: [id number] [address] [place] [address] 82y, M Registration Date/Time: 04/18/2017 04/19/2017 01:21 BP: 110/53. HR: 66. O2 saturation: 98%. 04/19/2017 00:49 BP: 104/48. HR: 68. RR: 17. O2 saturation: 100%. Temp: 98 F. Pain level now: 08/03. Syncope of unknown cause .12 lead EKG performed. Blood pressure normal. Oxygen saturation normal. Atrial flutter with controlled rate. Moderate dehydration Hyperkalemia (acute resolved). Mild hypomagnesemia (acute). Single contusion. (anterior chest). INSTRUCTIONS Warnings: GENERAL WARNINGS: Return or contact your physician immediately if your condition worsens or changes unexpectedly, if not improving as expected, or if other problems arise. SPECIFICALLY, return if you develop weakness, numbness, tingling, pain or incontinence. OTC Medications: Aspirin 325 mg (available over the counter): take 1 orally every 24 hours. Dispense thirty (30). No refills. 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 Reason for referral: recheck today's concerns. Summary of care provided to patient via paper. Follow up with your doctor in three days. Reason for referral: recheck today's concerns. Summary of care provided to patient via paper. Screening today revealed the patient's blood pressure to be in the normal range. The patient should follow up with a primary care provider for blood pressure management. ADDITIONAL INFORMATION Chest Contusion Acontusion is a bruise to the skin, muscle or ribs. It may cause pain, tenderness, swelling and a purplish discoloration. Contusions take a few days to a few weeks to heal. Home Care: Rest. You should not be doing any heavy lifting or strenuous exertion, or any activity that causes pain. You may use acetaminophen (Tylenol) or ibuprofen (Motrin, Advil) to control pain, unless another pain medicine was prescribed. [ NOTE: If you have chronic liver or kidney disease or ever had a stomach ulcer or GI bleeding, talk with your doctor before using these medicines.] Follow Up with your doctor during the next week or as directed. Get Prompt Medical Attention if any of the following occur: Shortness of breath Increasing chest pain with breathing Dizziness, weakness or fainting New or worsening of abdominal pain Fever of 100.4F (38C) or higher, or as directed by your healthcare provider Atrial Flutter Atrial flutteris a condition where the heart beats at a very rapid rate. It is due to a disturbance in the electrical pathways of the heart. It is a sign of heart disease or other health problems affecting the heart. The most common symptom ispalpitations. This is the feeling that your heart is fluttering or beating fast or hard. When the heart beats too fast, it does not pump blood very well. This can cause other symptoms such as anxiety, fatigue, shortness of breath, chest pain, dizziness or fainting. If this is your first episode of atrial flutter, and you have no heart or lung disease, you may never have another episode again. But in most cases, atrial flutter comes and goes, lasting from a few hours to a couple of days. Sometimes the atrial flutter does not ever go away and becomes chronic. Atrial flutter may be caused by disease of the heart or other conditions in the body that affect the heart: Coronary artery disease (arteriosclerosis) High blood pressure Disease of the heart valves Enlarged heart Atrial flutter can occur without heart disease due to: Overactive thyroid (hyperthyroid) Chronic lung disease (COPD, emphysema, bronchitis) Heavy alcohol use Cardiac stimulants (cocaine, amphetamines, diet pills, certain decongestant cold medicines, caffeine or nicotine) Infection Treating or removing these causes will improve success in the treatment of atrial flutter and reduce your risk of recurrence. Atrial flutter can alternate back and forth with another abnormal rhythm called atrial fibrillation. The risk of stroke is higher with these conditions. Proper treatment can reduce your risk. Home Care: Resume your usual activities as soon as you are feeling back to normal. If you smoke, stop smoking. Contact your doctor or a local stop-smoking program for help. Avoid stimulants (cocaine, amphetamines, diet pills, certain decongestant cold medicines, caffeine, or nicotine). If medicine is prescribed to prevent recurrence of atrial fibrillation, take it exactly as directed. Some medicines must be taken daily, not just when you have symptoms, in order to be effective. If you were prescribed warfarin (Coumadin) to reduce stroke risk, have your blood tested on a regular basis as advised by your doctor. This will ensure that the dose is correct for you. Follow Up With Your Doctor Or As Advised By Our Staff. Get Prompt Medical Attention If Any Of The Following Occur: Increasing shortness of breath Swellingof the legs Unexpected weight gain Chest pain or palpitations (the sense that your heart is fluttering, beating fast or hard) Fever of 100.4F (38C) or higher, or as directed by your healthcare provider Cough with dark-colored or bloody sputum (mucus) Pain, redness, or swelling in one leg Signs of stroke: Weakness or numbness of an arm or leg or one side of the face Difficulty with speech or vision Extreme drowsiness, confusion, dizziness or fainting Dehydration (Adult) Dehydration occurs when your body loses too much fluid. This may be the result of vomiting a lot or from diarrhea,sweating a lot, or a high fever. It may also happen if you dont drink enough fluid when youre sick. Misuse of diuretics (water pills) can also be a cause. Symptoms include thirst and feeling dizzy, weak, fatigued, or very drowsy. The diet described below is usually enough to treat most cases. Sometimes you may needmedicine. Home Care Follow these guidelines for home care: Drink at least 12 8-ounce glasses of fluid every day to overcome the dehydration. Fluid may include water; orange juice; lemonade; apple, grape, and cranberry juice; clear fruit drinks; electrolyte replacement and sports drinks; and teas and coffee without caffeine. If you have been diagnosed with a kidney disease, ask your doctor how much and what types of fluids you should drink to prevent dehydration. If you have kidney disease, drinking too much fluid can cause it build up in the your body and be dangerous to your health. If you have fever, muscle aching, or headache from a viral syndrome, you may useacetaminophen or ibuprofen, unless another medicine was prescribed for this.If you have chronic liver or kidney disease or ever had a stomach ulcer or GI bleeding, talk with your doctor before using these medicines. Don't take aspirin if you are younger than 18 and are ill with a fever.Aspirin raises the chance forsevere liver injury. Follow-up care Follow up with your health care provider if you don't get better in the next 24 to 48 hours. When to seek medical care Get prompt medical attention if any of theseoccur: Continued vomiting (cant keep liquids down) Frequent diarrhea (more than 5 times a day); blood (red or black color) or mucus in diarrhea Blood in vomit or stool Swollen abdomen or increasing abdominal pain Weakness, dizziness, or fainting Unusually drowsy or confused Reduced urine output or extreme thirst Fever of 100.4 F (38 C) oral or higher that does not get better with fever medication Fainting:Uncertain Cause Fainting (syncope) is a temporary loss of consciousness ("passing out"). It occurs when blood flow to the brain is reduced. Near-fainting ("near-syncope") is very similar to fainting, but you do not fully "pass out". The common minor causes of fainting include: sudden fear, pain, nausea, emotional stress and overexertion. Suddenly standing up after sitting or lying for a long time can also cause fainting. The more serious causes for fainting are due to either a very slow or very fast or very slow heart beat ("arrhythmia"), other types of heart disease, dehydration, blood loss, seizure, stroke or ruptured blood vessel in the brain. Taking too much high blood pressure medicine can also cause low blood pressure and fainting. The exact cause of your episode is not certain. However, the tests today did not show any of the serious causes of fainting. Sometimes further testing is needed to find out if a serious problem exists. Therefore, it is important that you follow-up with your doctor as advised. Home Care: 1) Rest today. You may resume your normal activities when you are feeling back to normal. It is best to remain with someone who can check on you for the next 24 hours to watch for another episode of fainting. 2) If you become light-headed or dizzy, lie down immediately or sit with your head between your knees. 3) Because we do not know the exact cause of your near fainting spell, it is possible for another spell to occur without warning. Therefore, do not drive a car or operate dangerous equipment, do not take a bath alone (use a shower instead) and do not swim alone until your doctor says that you are no longer in danger of having another fainting spell. Follow Up with your doctor as advised. Get Prompt Medical Attention if any of the following occur: -- Another fainting spell occurs, which is not explained by the common causes listed above -- Chest, arm, neck, jaw, back or abdominal pain -- Shortness of breath -- Severe headache or seizure -- Blood in vomit, stools (black or red color) -- Unexpected vaginal bleeding -- Palpitations (very rapid or very slow or irregular heart beat) -- Signs of stroke: Weakness of an arm or leg or one side of the face Difficulty with speech or vision Extreme drowsiness, confusion, dizziness or fainting Hyperkalemia Hyperkalemia is a condition caused by too much potassium in the blood. Most often this occurs in persons taking potassium supplements, or those with severe kidney disease. Mild hyperkalemia usually causes no symptoms. It is only discovered with a blood test. As the potassium level rises, symptoms may include weakness, heart palpitations (rapid or irregular heartbeats), nausea, vomiting, or diarrhea. Home Care: Follow your doctors advice about any potassium supplements and diuretics (water pills) you may be taking. Additional prescription medicines may also be given to remove excess potassium. Follow Up with your doctor for a repeat blood test within the next7 days, unless told otherwise. Get Prompt Medical Attention if any of the following occur: Weakness, dizziness Irregular heartbeat, extra beats, very fast or very slow heart rate Fainting spell Nausea, vomiting, or diarrhea Chest, arm, shoulder, neck or upper back pain, or shortness of breath Reduced urination Aspirin Oral tablet What is this medicine? ASPIRIN ( pir in) is a pain reliever. It is used to treat mild pain and fever. This medicine is also used as directed by a doctor to prevent and to treat heart attacks, to prevent strokes, and to treat arthritis or inflammation. How should I use this medicine? Take this medicine by mouth with a glass of water. Follow the directions on the package or prescription label. You can take this medicine with or without food. If it upsets your stomach, take it with food. Do not take your medicine more often than directed. Talk to your in home aide regarding the use of this medicine in children. While this drug may be prescribed for children as young as 12 years of age for selected conditions, precautions do apply. Children and teenagers should not use this medicine to treat chicken pox or flu symptoms unless directed by a doctor. Patients over 65 years old may have a stronger reaction and need a smaller dose. What side effects may I notice from receiving this medicine? Side effects that you should report to your doctor or health long term care administrator as soon as possible: allergic reactions like skin rash, itching or hives, swelling of the face, lips, or tongue breathing problems changes in hearing, ringing in the ears confusion general ill feeling or flu-like symptoms pain on swallowing redness, blistering, peeling or loosening of the skin, including inside the mouth or nose signs and symptoms of bleeding such as bloody or black, tarry stools; red or dark-brown urine; spitting up blood or brown material that looks like coffee grounds; red spots on the skin; unusual bruising or bleeding from the eye, gums, or nose trouble passing urine or change in the amount of urine unusually weak or tired yellowing of the eyes or skin Side effects that usually do not require medical attention (report to your doctor or health long term care administrator if they continue or are bothersome): diarrhea or constipation nausea, vomiting stomach gas, heartburn What may interact with this medicine? Do not take this medicine with any of the following medications: cidofovir ketorolac probenecid This medicine may also interact with the following medications: alcohol alendronate bismuth subsalicylate flavocoxid herbal supplements like feverfew, garlic, karl, ginkgo biloba, horse chestnut medicines for diabetes or glaucoma like acetazolamide, methazolamide medicines for gout medicines that treat or prevent blood clots like enoxaparin, heparin, ticlopidine, warfarin other aspirin and aspirin-like medicines NSAIDs, medicines for pain and inflammation, like ibuprofen or naproxen pemetrexed sulfinpyrazone varicella live vaccine What if I miss a dose? If you are taking this medicine on a regular schedule and miss a dose, take it as soon as you can. If it is almost time for your next dose, take only that dose. Do not take double or extra doses. Where should I keep my medicine? Keep out of the reach of children. Store at room temperature between 15 and 30 degrees C (59 and 86 degrees F). Protect from heat and moisture. Do not use this medicine if it has a strong vinegar smell. Throw away any unused medicine after the expiration date. What should I tell my health care provider before I take this medicine? They need to know if you have any of these conditions: anemia asthma bleeding problems child with chickenpox, the flu, or other viral infection diabetes gout if you frequently drink alcohol containing drinks kidney disease liver disease low level of vitamin K lupus smoke tobacco stomach ulcers or other problems an unusual or allergic reaction to aspirin, tartrazine dye, other medicines, dyes, or preservatives or trying to get breast-feeding What should I watch for while using this medicine? If you are treating yourself for pain, tell your doctor or health long term care administrator if the pain lasts more than 10 days, if it gets worse, or if there is a new or different kind of pain. Tell your doctor if you see redness or swelling. Also, check with your doctor if you have a fever that lasts for more than 3 days. Only take this medicine to prevent heart attacks or blood clotting if prescribed by your doctor or health long term care administrator. Do not take aspirin or aspirin-like medicines with this medicine. Too much aspirin can be dangerous. Always read the labels carefully. This medicine can irritate your stomach or cause bleeding problems. Do not smoke cigarettes or drink alcohol while taking this medicine. Do not lie down for 30 minutes after taking this medicine to prevent irritation to your throat. If you are scheduled for any medical or dental procedure, tell your healthcare provider that you are taking this medicine. You may need to stop taking this medicine before the procedure. You have been given the following additional information: Chest Wall Contusion Atrial Flutter Dehydration (Adult) Syncope, Unk Cause Hyperkalemia Aspirin Oral tablet (Electronically signed by Rubens Rios Dr. 04/21/2017 8:05)
--- NOTE | 2017-04-21 08:05 | ED MAR SUMMARY ---
..... Medication Administration Record [facility] [address] [place] [place] [address] Patient: MANUELA CORADO Visit ID: [id number] 82y, M Weight: 79.3 kg Height/Length: 71 in BMI: 24.4 ALLERGIES: No Known Drug Allergy Start 20:45 04/18/2017 Sriram Zarate RFina, Stop 21:26 04/18/2017 Alma Lemus R.N. Medication Administered: IV NS (SALINE), Dose: IV Fluids over 30 minute(s), Rate: 1000 mL/hr, Dispensed: 1000 mL bag, Site: #1 right AC. Medication Ordered: IV NS : initial bolus none -, then 1000 mL/hr for X1 (NOW) (Runn 500 mL in initially plz). Given 22:02 04/18/2017 Rusty Underwood R.N. Medication Administered: MORPHINE [IVP], Dose: 2 mg IVP over 2 minute(s), Site: #1 right AC. Medication Ordered: Morphine IV 2 mg (may repeat in 15 minutes for pain > 5/10 in severity). Given 22:28 04/18/2017 Rusty Underwood R.N. Medication Administered: MORPHINE [IVP], Dose: 2 mg IVP over 2 minute(s), Site: #1 right AC. Medication Ordered: Morphine IV 2 mg (may repeat in 15 minutes for pain > 5/10 in severity). Given 00:09 04/19/2017 Gerhard Santa R.N. Medication Administered: MAGNESIUM SULFATE [IVP] (MAGNESIUM SULFATE IN D5W), Dose: 2 gm IVP over 2 hour(s), Site: #1 right AC. Medication Ordered: Magnesium Sulfate IV 2 gm/50mL (HIGH ALERT MEDICATION, NOW, over 1 hour). Given 01:05 04/19/2017 Gerhard Santa R.N. Medication Administered: MORPHINE [IVP], Dose: 2 mg IVP over 3 minute(s), Site: #1 right AC. Medication Ordered: Morphine IV 2 mg (HIGH ALERT MEDICATION, NOW).
== END 2017-04-19 02:10 | disposition home or self-care (01) ==
LOC: ED SRH 20:26
DX: R55 Syncope and collapse (principal); I48.92 Unspecified atrial flutter; E86.0 Dehydration; S20.219A Contusion of unspecified front wall of thorax, initial encounter; E87.5 Hyperkalemia; E83.42 Hypomagnesemia; W19.XXXA Unspecified fall, initial encounter; Y93.9 Activity, unspecified; Y99.9 Unspecified external cause status; Y92.009 Unspecified place in unspecified non-institutional (private) residence as the place of occurrence of the external cause; Z95.1 Presence of aortocoronary bypass graft; R79.9 Abnormal finding of blood chemistry, unspecified; Z95.0 Presence of cardiac pacemaker
CPT/HCPCS: 90004; 90100; 90616; 91320; 91556; 92610; 92720; 92750; 95059